=== PATIENT | female | born 1990 | race Caucasian/White ===

== ENCOUNTER 2018-05-20 22:52 | Inpatient (IN) | payer MEDICAID ==
[~2018-05-20] VITALS: Ht 152.4 cm; Wt 63.5 kg
[2018-05-20 23:05] VITALS: Ht 152.4 cm; Wt 63.5 kg
[2018-05-20] MEDS ORDERED: LACTATED RINGER'S 1,000 ML IV PRN (23:06)
--- NOTE | 2018-05-20 23:12 | TRIAGE ---
OB Triage Datetime Report Generated by CPN: 05/20/2018 23:12 Datetime: 05/20/2018 23:10 Time of Arrival: 05/20/2018 22:47 EGA: 39.2 Arrived By: Wheelchair Arrived From: Home Chief Complaint: UC'S Movement: Present Contractions: Regular Time Contractions Began: 05/20/2018 08:00 Contractions: Q4 Rupture of Membranes: Denies Vaginal Bleeding: Small Vaginal Discharge: Denies Recent Sexual Intercouse: Denies Abdominal Trauma: Not Applicable Patient Complaints: Contractions Time Provider Notified: 05/20/2018 23:04 Provider Notified: REICHE Initial Plan: EFM, SVE Datetime: 05/20/2018 22:57 Stage of : OB Triage Assessment Type: Triage Maternal Assessment Level of Consciousness: Fully Conscious Headache: Denies Blurred Vision: No Respiratory Effort: Unlabored; Regular Rhythm; Equal Expansion Nausea/Vomiting: Denies RUQ Epigastric Pain: Denies Facial Edema: None Fall Risk Assessment History of Falling: (0) No Secondary Diagnosis: (0) No Ambulatory Aid: (0) Bedrest/Nurse Assist IV Therapy: (0) No Gait: (0) Normal/Bedrest/Immobile Mental Status: (0) Oriented to Own Ability Fall Score: 0 Fall Risk Score Definition: No Risk: No action required Datetime: 05/20/2018 22:56 Stage of : OB Triage Vaginal Exam Dilatation (cms): 3.0 Effacement (%): 60 Station: -2 Exam By: bart morris
[2018-05-20] MEDS ORDERED: BUTORPHANOL 2 MG INJ IV PRN (23:30)
[2018-05-20] MEDS ORDERED: CARBOPROST 250 MCG INJ IM PRN (23:30)
[2018-05-20] MEDS ORDERED: OXYTOCIN 30 UNITS/LR 500 ML IV SCH ×3 (23:30)
[2018-05-20] MEDS ORDERED: OXYTOCIN 30 UNITS/LR 500 ML IV PRN (23:30)
[2018-05-20] MEDS ORDERED: LIDOCAINE 1% (MPF) 30 ML INJ INJ PRN (23:30)
[2018-05-20] MEDS ORDERED: METHYLERGONOVINE 0.2 MG INJ IM PRN (23:30)
[2018-05-20] MEDS ORDERED: MISOPROSTOL 200 MCG TAB PR PRN (23:30)
[2018-05-21] MEDS ORDERED: FENTAnyl 2MCG/ML-ROPIV 0.2% 100 ML ONE (00:27)
[2018-05-21] MEDS: LACTATED RINGER'S 1,000 ML IV SCH ×3 (00:35→09:14)
--- NOTE | 2018-05-21 00:36 | PREAC ---
Date/Time of Note Date/Time of Note DATE: 05/21/18 TIME: 00:35 Anesthesia Eval and Record Evaluation Time Pre-Procedure Interview DATE: 05/21/18 TIME: 00:35 Age 27 Sex female NPO: 8 hrs Preoperative diagnosis Labor Pain Planned procedure Labor Epidural Past Medical History Past Medical History: Includes Heme: Anemia : : (2), Para: (1), Gestational age: (39) Surgery & Anesthesia Issues No known issue Meds Anticoagulation: No Beta Bang within 24 hr: No Reason Beta Bang not given: Pt. not on B-Bang Current Medications Lactated Ringer's 1,000 ml @ 125 mls/hr Q8H IV ; Start 05/20/18 at 23:06 Butorphanol Tartrate (Stadol) 2 mg Q2H PRN IV .PAIN; Start 05/20/18 at 23:30 Lidocaine (Xylocaine 1% (Mpf)) 30 ml ONCE PRN INJ .EPISIOTOMY; Start 05/20/18 at 23:30 Oxytocin/Lactated Ringer's 500 ml @ 500 mls/hr ONCE POST IV ; Start 05/20/18 at 23:30 Oxytocin/Lactated Ringer's 500 ml @ 125 mls/hr POST IV ; Start 05/20/18 at 23:30 Lactated Ringer's 1,000 ml @ 2,000 mls/hr Q30M PRN IV .ANESTHESIA; Start 05/20/18 at 23:06 Oxytocin/Lactated Ringer's 500 ml @ 0 mls/hr ONCE PRN IV .VAGINAL BLEEDING; Start 05/20/18 at 23:30 Methylergonovine Maleate (Methergine) 0.2 mg ONCE PRN IM .VAGINAL BLEEDING; Start 05/20/18 at 23:30 Carboprost Tromethamine (Hemabate) 250 mcg ONCE PRN IM .VAGINAL BLEEDING; Start 05/20/18 at 23:30 Misoprostol (Cytotec) 1,000 mcg ONCE PRN MS .VAGINAL BLEEDING; Start 05/20/18 at 23:30 Oxytocin/Lactated Ringer's 500 ml @ 0 mls/hr FOR AUGMENTATION IV ; Start 05/20/18 at 23:30 Meds reviewed: Yes Allergies Coded Allergies: No Known Allergy (Unverified , 05/20/18) Allergies Reviewed: Yes Labs/Studies Labs Reviewed: Reviewed by anesthesiologist Result Diagram: 05/20/18 2337 Laboratory Tests 05/20/18 23:37 test: Positive Studies: ECG (n/a), CXR (n/a) Pre-procedure Exam Airway: Adequate mouth opening, Adequate thyromental dist Mallampati: Mallampati II Teeth: Normal Lung: Normal Heart: Normal ASA Physical Status ASA physical status: 2 Emergency: None Planned Anesthetic Neuraxial: Epidural Planned Pain Management Epidural Pre-operative Attestations Prior to commencing anesthesia and surgery, the patient was re-evaluated, there was verification of: *The patient's identity *The results of appropriate recent lab work and preoperative vital signs *The above evaluation not changing prior to induction *Anesthetic plan, risk benefits, alternative and complications discussed with patient/family; questions answered; patient/family understands, accepts and wishes to proceed. TOMASA LAIRD MD May 21, 2018 00:36
--- NOTE | 2018-05-21 00:38 | PAC ---
Date/Time of Note Date/Time of Note DATE: 05/21/18 TIME: 00:37 Post-Anesthesia Notes Post-Anesthesia Note Last documented vital signs T: 98.0 Activity: WNL Respiratory function: WNL Cardiovascular function: WNL Mental status: Baseline Pain reasonably controlled: Yes Hydration appropriate: Yes Nausea/Vomiting absent: Yes TOMASA LAIRD MD May 21, 2018 00:38
[2018-05-21] MEDS ORDERED: NALOXONE (0.4 MG/ML) INJ IV PRN (01:00)
[2018-05-21] MEDS ORDERED: FENTAnyl 2MCG/ML-ROPIV 0.2% 100 ML BAG EPI SCH (01:00)
--- NOTE | 2018-05-21 11:49 | HP ---
Date/Time of Note Date/Time of Note DATE: 05/21/18 TIME: 11:45 OB - History Hx of Present Free Text/Dictation 27 years old 2 para 1001 with single intrauterine at 39 weeks and 2 days complaining of uterine contractions. She states good movement. She denies nausea, vomiting, shortness of breath, chest pain, headache, visual changes, vaginal bleeding or LOF. Chief Complaint: Uterine contractions Estimated Due Date: May 25, 2018 : 2 Para: 1 Spontaneous : 0 Therapeutic : 0 Ultrasounds: Normal mid trimester US Obstetrical Complications: None Medical Complications: None Past Family/Social History * Past Medical, Surgical, Family Histories reviewed which are unremarkable. OB history: with 1 normal vaginal delivery Blood Type: O+ RPR/VDRL: Negative GBS Status: Negative HBsAG: Negative OB Admission Exam Vital Signs Vital Signs Blood pressure 110/67, pulse rate 68/minutes, respiratory rate 16/minutes, temperature 98.1. Physical Exam HEENT: WNL Heart: Rhythm Normal Lungs: Clear Abdomen: WNL Extremities: Normal Cervical Dilatation: 3cm Effacement: 50% Station: -2 Membranes: Intact Heart Rate: 130's Accelerations: Accelerations Present Decelerations: No Decelerations Varibility: Moderate Intensity: Moderate Last 72 hours Lab Results CBC & BMP 05/20/18 23:37 OB Assessment/Plan Other plan: 27 years old 2 para 1001 with single intrauterine at 39 weeks and 2 days in labor - FHR: No sign of metabolic acidosis- Category I - Continuous EFM, toco - CBC, blood type and screen - Analgesia options with R/B/A discussed in detail with patient - Epidural per patient request - Please see the order - Blood type: O+ - GBS: Negative Admission, procedures, expectations, risks and possible complications have been discussed in detail with the patient. Risk of vaginal delivery including but not limited to bleeding, infection, cervical laceration, placental retention, injury to fetus, blood transfusion, blood transfusion related infection, risk of anesthesia, adhesion, cervical laceration, episiotomy/laceration, possible delivery with risk of bleeding, infection, injury to other organs (bowel, bladder, ureter, vessels, nerves), injury to fetus, blood transfusion, blood transfusion related infection, risk of anesthesia, scar and hernia formation, needs for future , removal of uterus or any other indicated surgery discussed with the patient. She expressed understanding and repeats the risks. All of her questions were answered. She signed the informed consent. PHYSICIAN'S VERIFICATION OF INFORMED CONSENT The patient was counseled regarding the procedure, its indications, risks, potential complications and alternatives and any questions were answered. Consent was obtained. PLANNED PROCEDURE/TREATMENT: Vaginal delivery, episiotomy, repair of laceration possible delivery CATRACHO GIRARD May 21, 2018 11:49
--- NOTE | 2018-05-21 11:52 | LDN ---
Date/Time of Note Date/Time of Note DATE: 05/21/18 TIME: 11:49 Delivery Summary 27 years old 2 para 1001 with single intrauterine at 39 weeks and 3 days delivered viable female over first-degree posterior vaginal wall and the right periurethral laceration. Nose and mouth suctioned. Rest of body delivered. Cord clamped and cut. Baby given to the nurse. Placenta delivered spontaneously and and intact with three-vessel cord. Laceration repaired with 3-0 chromic SH needle. Patient tolerated procedure well. Time of delivery 1120 Weight 3220 g - 7 pound 2 ounces Height 18.5 inches 9 7 at 1 minutes and 9 at 5 minutes EBL 200 ml Weeks of Gestation 39 weeks and 3 days Placenta Delivered: Spontaneously Episiotomy: No Estimated blood loss: 200 Sponge & Needle done & correct: Yes All needle counts correct: Yes Any foreign bodies felt in the: No Infant Delivery Information Sex Infant Sex: female Apgars 1 Minute: 7 5 Minute: 9 10 Minute: 10 Suctioning Nose & mouth suctioned at colette: Yes Umbilical Cord Umbilical cord with: 3 Vessels Cord presentations: no nuchal cord Cord Blood was obtained: Yes Mother & Baby Disposition Disposition Mom & Baby to Maternity; Good: Yes CATRACHO GIRARD May 21, 2018 11:52
[2018-05-21 13:15] VITALS: BP 112/77; PULSE 85; RESP 17
[2018-05-21 13:45] VITALS: BP 123/77; PULSE 72; RESP 16
[2018-05-21] MEDS ORDERED: LACTATED RINGER'S 1,000 ML IV* SCH (14:33)
[2018-05-21] MEDS ORDERED: DEXTROSE 5%-LR 1,000 ML IV SCH (14:33)
[2018-05-21] MEDS: OXYCODONE/ASPIRIN (4.88/325) TAB PO PRN (14:50)
[2018-05-21] MEDS: BENZOCAINE 20% 56 ML SPRAY TOP PRN (14:50)
[2018-05-21] MEDS: LANOLIN HPA 1 PKT TOP PRN (14:50)
[2018-05-21] MEDS: WITCH HAZEL/GLYCERIN PAD PR PRN (14:50)
[2018-05-21] MEDS ORDERED: DIBUCAINE 1% 30 GM OINT TOP PRN (15:00)
[2018-05-21] MEDS ORDERED: MISOPROSTOL 200 MCG TAB PR PRN (15:00)
[2018-05-21] MEDS ORDERED: CARBOPROST 250 MCG INJ IM PRN (15:00)
[2018-05-21] MEDS ORDERED: ACETAMINOPHEN 325 MG TAB PO PRN (15:00)
[2018-05-21] MEDS ORDERED: DIPHENHYDRAMINE 50 MG INJ IV PRN (15:00)
[2018-05-21] MEDS ORDERED: ZOLPIDEM 5 MG TAB PO PRN (15:00)
[2018-05-21] MEDS ORDERED: ONDANSETRON 4 MG INJ IV PRN (15:00)
[2018-05-21] MEDS ORDERED: MAGNESIUM HYDROXIDE 30ML CUP PO PRN (15:00)
[2018-05-21] MEDS ORDERED: METHYLERGONOVINE 0.2 MG INJ IM PRN (15:00)
[2018-05-21] MEDS ORDERED: OXYTOCIN 30 UNITS/LR 500 ML IV PRN (15:00)
[2018-05-21 15:54] VITALS: BP 112/70; PULSE 75; RESP 16
[2018-05-21] MEDS: IBUPROFEN 600 MG TAB PO SCH ×2 (17:14→23:39)
[2018-05-21 20:35] VITALS: BP 98/62; PULSE 68; RESP 18
[2018-05-21] MEDS: SENNA/DOCUSATE NA (8.6MG/50MG) TAB PO PRN (20:40)
[2018-05-22 00:15] VITALS: BP 99/66; PULSE 70; RESP 18
[2018-05-22 04:15] VITALS: BP 96/54; PULSE 73; RESP 17
[2018-05-22] MEDS: IBUPROFEN 600 MG TAB PO SCH ×4 (05:40→23:59)
[2018-05-22 08:15] VITALS: BP 94/53; PULSE 65; RESP 14
[2018-05-22] MEDS: OXYCODONE/ASPIRIN (4.88/325) TAB PO PRN ×2 (08:50→22:01)
[2018-05-22 16:00] VITALS: BP 94/50; PULSE 64; RESP 15
[2018-05-22 19:50] VITALS: BP 96/53; PULSE 70; RESP 16
[2018-05-22] MEDS: LANOLIN HPA 1 PKT TOP PRN (20:49)
[2018-05-22] MEDS: SENNA/DOCUSATE NA (8.6MG/50MG) TAB PO PRN (22:01)
[2018-05-23 04:25] VITALS: BP 96/50; RESP 18
[2018-05-23] MEDS: IBUPROFEN 600 MG TAB PO SCH ×3 (06:17→17:21)
[2018-05-23 07:45] VITALS: BP 97/61; PULSE 70; RESP 18
--- NOTE | 2018-05-23 08:49 | PN ---
Date/Time of Note Date/Time of Note DATE: 05/23/18 TIME: 08:47 OB Subjective Subjective Subjective Late Entry Note: Patient seen on 05/22/18 PPD# 1 Patient is doing well. She denies nausea, vomiting, shortness of breath, chest pain, headache. She has been ambulating without difficulty, tolerating regular diet. Pain is well controlled on current medications OB Objective Objective Objective General: AAO X 3, comfortable, NAD, appropriate mood and affect. ABD: +BS. Soft, non-tender. Uterus 2 cm below umbilicus Flank: No CVA tenderness (B/L) LE: Mild edema. No clubbing, cyanosis, thigh or calf tenderness (B/L). Homans 'sign is negative OB Assessment/Plan Other plan: 27 years old 2 para 2-0-0-2 at 39 weeks and 2 days s/p normal vaginal delivery. PPD#1 - AF, VSS - Contraception methods with R/B/A/FR discussed - Continue care CATRACHO GIRARD May 23, 2018 08:49
--- NOTE | 2018-05-23 08:50 | PN ---
Date/Time of Note Date/Time of Note DATE: 05/23/18 TIME: 08:50 OB Subjective Subjective Subjective PPD# 2 Patient is doing well. She denies nausea, vomiting, shortness of breath, chest pain, headache. She has been ambulating without difficulty, tolerating regular diet. Pain is well controlled on current medications OB Objective Objective Objective VS - Last 72 Hours, by Label Date Temp Pulse Resp B/P (MAP) Pulse Ox O2 O2 Flow FiO2 Time Delivery Rate 05/23/18 98.3 18 96/50 (65) Room Air 04:25 05/22/18 98.4 70 16 96/53 (67) Room Air 19:50 05/22/18 98.3 64 15 94/50 (65) Room Air 16:00 05/22/18 97.9 65 14 94/53 (67) Room Air 08:15 05/22/18 98.4 73 17 96/54 (68) Room Air 04:15 05/22/18 97.8 70 18 99/66 (77) Room Air 00:15 05/21/18 98.2 68 18 98/62 (74) Room Air 20:35 05/21/18 99.0 75 16 112/70 Room Air 15:54 (84) 05/21/18 72 16 123/77 Room Air 13:45 (92) 05/21/18 100.3 85 17 112/77 Room Air 13:15 (89) General: AAO X 3, comfortable, NAD, appropriate mood and affect. ABD: +BS. Soft, non-tender. Uterus 2 cm below umbilicus Flank: No CVA tenderness (B/L) LE: Mild edema. No clubbing, cyanosis, thigh or calf tenderness (B/L). Homans 'sign is negative OB Assessment/Plan Other plan: 27 years old 2 para 2-0-0-2 at 39 weeks and 2 days s/p normal vaginal delivery. PPD#2 - AF, VSS - Continue care - Discharge home - Rx and instruction given - Follow up in 2 and 6 weeks at clinic CATRACHO GIRARD May 23, 2018 08:50
[2018-05-23] MEDS ORDERED: MEASLES,MUMPS,RUBELLA VACCINE INJ SC* ONE (09:00)
[2018-05-23] MEDS ORDERED: DIPHTH/TET/ACEL PERTUSS (ADULT) 0.5 ML VIAL IM* ONE (09:00)
--- NOTE | 2018-05-23 10:12 | DS ---
Date/Time of Note Date/Time of Note DATE: 05/23/18 TIME: 10:12 Obstetrical Discharge Record Final Diagnosis Final Diagnosis: Term delivered Other Final Diagnosis 27 years old 2 para 2-0-0-2 at 39 weeks and 2 days s/p normal vaginal delivery. PPD#2 - AF, VSS - Continue care - Discharge home - Rx and instruction given - Follow up in 2 and 6 weeks at clinic Vaginal Delivery Obstetrical Delivery: Spontaneous Condition on Discharge Physical Assessment Last Vitals: Vital Signs Date Temp Pulse Resp B/P (MAP) Pulse Ox O2 O2 Flow FiO2 Time Delivery Rate 05/23/18 98.3 18 96/50 (65) Room Air 04:25 05/22/18 70 19:50 Voiding: Yes Bowel Movement: Yes Breast: Soft, non-tender Fundus: Firm Calf Tenderness: No Patient Condition: Stable CATRACHO GIRARD May 23, 2018 10:12
[2018-05-23] MEDS: BENZOCAINE 20% 56 ML SPRAY TOP PRN (14:59)
[2018-05-23] MEDS: WITCH HAZEL/GLYCERIN PAD PR PRN (14:59)
[2018-05-23 16:01] VITALS: BP 94/55; PULSE 70; RESP 18
--- NOTE | 2018-05-24 18:57 | DELSUM ---
Delivery Summary A-C Datetime Report Generated by CPN: 05/24/2018 18:57 DELIVERY PERSONNEL Client Success Manager: Khemani, Dora MATERNAL INFORMATION Delivery Anesthesia: Epidural Medications in Delivery: LR W/30 UNITS PITOCIN Delivery QBL (ml): 280 Placenta Cultured: No Maternal Complications: None LABOR SUMMARY EDC: 05/25/2018 00:00 No. Babies in Womb: 1 Attempted: No Labor Anesthesia: Epidural LABOR INFORMATION Reason for Induction: Not Applicable Onset of Labor: 05/20/2018 06:00 Complete Dilatation: 05/21/2018 10:44 Oxytocin: Augmentation Group B Beta Strep: Negative Antibiotics # of Doses: 0 Steroids Given: None Reason Steroids Not Administered: Not Applicable MEMBRANES Membranes Rupture Method: Spontaneous Rupture of Membranes: 05/21/2018 06:47 Length of Rupture (hr): 4.55 Amniotic Fluid Color: Bloody Amniotic Fluid Amount: Moderate Amniotic Fluid Odor: Normal STAGES OF LABOR Stage 1 hr: 28 Stage 1 min: 44 Stage 2 hr: 0 Stage 2 min: 36 Stage 3 hr: 0 Stage 3 min: 5 Total Time in Labor hr: 29 Total Time in Labor min: 25 VAGINAL DELIVERY Episiotomy: None Laceration Extension: First Degree Laceration Type: Vaginal; Periurethral Laceration Repair: Yes Initial Vag Sponge Count: 10 Final Vag Sponge Count: 10 Initial Vag Sharps Count: 1 Final Vag Sharps Count: 1+1 Sponge Count Correct: Yes; Vaginal Sweep Performed Sharps Count Correct: Yes BABY A INFORMATION Infant Delivery Date/Time: 05/21/2018 11:20 Method of Delivery: Vaginal Born in Route : No : N/A Forceps: N/A Vacuum Extraction: N/A Shoulder Dystocia : N/A SHOULDER DYSTOCIA BABY A Delivery Date/Time: 05/21/2018 11:20 PRESENTATION/POSITION BABY A Presentation: Cephalic Cephalic Presentation: Vertex Vertex Position: Right Occipital Anterior Breech Presentation: N/A PLACENTA INFORMATION BABY A Placenta Delivery Time : 05/21/2018 11:25 Placenta Method of Delivery: Spontaneous Placenta Status: Delivered SCORES BABY A Heart Rate 1 min: >100 bpm Resp Effort 1 min: Slow, Irregular Reflex Irritability 1 min: Cough/Sneeze/Pulls Away Muscle Tone 1 min: Some Flexion of Extrem Color 1 min: Body [place], Extremit Blue Resuscitation Effort 1 min: Tactile Stimulation SCORE 1 MIN: 7 Heart Rate 5 min: >100 bpm Resp Effort 5 min: Good Cry Reflex Irritability 5 min: Cough/Sneeze/Pulls Away Muscle Tone 5 min: Active Motion Color 5 min: Body [place], Extremit Blue Resuscitation Effort 5 min: Tactile Stimulation SCORE 5 MIN: 9 INFANT INFORMATION BABY A Gestational Age at Delivery: 39.3 Gestational Status: Full Term- 39- 40.6 Weeks Outcome : Liveborn Infant Condition : Stable Infant Sex: Female IDENTIFICATION/MEDS BABY A ID Band Number: [id number] ID Band Location: Right Leg; Left Arm Sensor Applied: Yes Sensor Number: [id number] Sensor Location : Cord Clamp Vitamin K Given : Not Given Erythromycin Given: Not Given WEIGHT/LENGTH BABY A Birthweight (gm): 3220 Weight (lb): 7 Infant Weight (oz): 2 Length (in): 18.50 Length (cm): 46.99 CORD INFORMATION BABY A No. Cord Vessels: 3 Nuchal Cord : N/A Cord Blood Taken: Yes Suction: Mouth; Nose ASSESSMENT BABY A Infant Complications: None Physical Findings at Delivery: Within Normal Limits Infant Respirations: Appears Normal Hospital Television Rental Clerk/ALS Called : Yes Infant Care By: RT/RN Transferred To: Remains with Mother
== END 2018-05-23 18:52 | disposition home or self-care (01) | DRG 807 ==
LOC: OBT 22:52 → L-D 22:52 → OBT 23:04 → L-D 23:04 → PP1 05-21 13:15
PROVIDERS: ADMIT Obstetrics & Gynecology; ATTEND Obstetrics & Gynecology
PROC: 10E0XZZ Delivery of Products of Conception, External Approach (ICD-10-PCS; principal; 2018-05-21)
PROC: 0HQ9XZZ Repair Perineum Skin, External Approach (ICD-10-PCS; 2018-05-21)
PROC: 3E033VJ Introduction of Other Hormone into Peripheral Vein, Percutaneous Approach (ICD-10-PCS; 2018-05-21)
DX: O71.4 Obstetric high vaginal laceration alone (principal); Z37.0 Single live birth; Z3A.39 39 weeks gestation of pregnancy
CPT/HCPCS: 85025; 85610; 85730; 86592; 86762; 86850; 86900; 86901; 87340; G0463; J2210; J2590; J3010; J7120; J7121

== ENCOUNTER 2018-06-03 12:21 | Emergency (ER) | payer MEDICAID ==
[~2018-06-03] VITALS: Ht 152.4 cm; Wt 55.4 kg
[2018-06-03 12:39] VITALS: Ht 152.4 cm; Wt 55.4 kg
[2018-06-03] MEDS ORDERED: KETOROLAC 30 MG INJ IV STA (13:10)
[2018-06-03] MEDS ORDERED: SOD CHLORIDE 0.9% 1,000 ML IV STA (13:10)
[2018-06-03] MEDS ORDERED: ACETAMINOPHEN 500 MG TAB ONE (13:44)
[2018-06-03 14:52] VITALS: BP 98/63; PULSE 97; RESP 18
[2018-06-03] MEDS ORDERED: CEPH-443 PO (15:08)
[2018-06-03] MEDS ORDERED: IBUP800T48 PO (15:08)
--- NOTE | 2018-06-03 15:14 | ERD ---
ER Documentation Chief Complaint Chief Complaint FEVER BODYACHES X 1 DAY. HPI This is a 27-year-old female who presents to the emergency room with a 13-day child. The patient is breast-feeding and notes fever, right breast pain. She also describes suprapubic discomfort with dysuria and urgency. She describes generalized malaise and fever. The pain to the right breast is throbbing, worse with breast-feeding and worse to touch. During the patient's encounter translation services were utilized Language: Telugu Source: In person ROS All systems reviewed and are negative except as per history of present illness. Medications Home Meds Active Scripts Cephalexin* (Keflex*) 500 Mg Capsule, 500 MG PO QID for 7 Days, CAP Prov:CATHERINE OLSEN MD 06/03/18 Ibuprofen* (Motrin*) 800 Mg Tab, 800 MG PO Q6H PRN for PAIN AND OR ELEVATED TEMP, #30 TAB Prov:CATHERINE OLSEN MD 06/03/18 Allergies Allergies: Coded Allergies: No Known Allergy (Unverified , 05/20/18) PMhx/Soc Medical and Surgical Hx: pt denies Medical Hx, pt denies Surgical Hx Hx Alcohol Use: No Hx Substance Use: No Hx Tobacco Use: No Smoking Status: Never smoker FmHx Family History: No diabetes Physical Exam Vitals Vital Signs Date Temp Pulse Resp B/P (MAP) Pulse Ox O2 O2 Flow FiO2 Time Delivery Rate 06/03/18 100.2 97 18 98/63 (75) 97 Room Air 14:52 06/03/18 103.0 13:40 06/03/18 102.0 90 17 110/59 100 12:39 (76) Physical Exam General: Well developed, well nourished, no acute distress Head: Normocephalic, atraumatic. Eyes: Pupils equally reactive, EOM intact ENT: Moist mucous membranes Neck: Supple, no lymphadenopathy Respiratory: Lungs clear bilaterally, no distress Cardiovascular: RRR, no murmurs, rubs, or gallops Abdominal: Soft, very mild suprapubic abdominal tenderness without rebound or guarding, no localization of the right lower quadrant, negative Trevino sign, non-distended, no peritoneal signs : Deferred MSK: No edema, no unilateral swelling, 5/5 strength Neurologic: Alert and oriented, moving all extremities, normal speech, no focal weakness, no cerebellar signs Skin: Geospatial Systems Integrator exam reveals a right lateral aspect breast induration warmth and tenderness. No focal abscess palpated. Milk is expressed. Psych: Normal mood Results 24 hrs Laboratory Tests Test 06/03/18 14:41 Urine Color YELLOW Urine Clarity CLOUDY Urine pH 5.0 Urine Specific [place] 1.021 Urine Ketones NEGATIVE mg/dL Urine Nitrite NEGATIVE mg/dL Urine Bilirubin NEGATIVE mg/dL Urine Urobilinogen NEGATIVE mg/dL Urine Leukocyte Esterase 2+ Zofia/ul Urine Microscopic RBC 22 /HPF Urine Microscopic WBC 70 /HPF Urine Squamous Epithelial Cells FEW /HPF Urine Bacteria FEW /HPF Urine Mucus FEW /HPF Urine Hemoglobin 1+ mg/dL Urine Glucose NEGATIVE mg/dL Urine Total Protein NEGATIVE mg/dl Current Medications Medications Dose Sig/Charity Start Time Status Last (Trade) Ordered Route PRN Stop Time Admin Dose Reason Admin Sodium 1,000 ml @ Q1H STAT 06/03/18 DC 06/03/18 Chloride 1,000 mls/hr IV 13:10 13:14 06/03/18 14:09 Ketorolac 30 mg ONCE STAT 06/03/18 DC 06/03/18 Tromethamine IV 13:10 13:47 (Toradol) 06/03/18 13:12 500 mg STK-MED 06/03/18 DC Acetaminophen ONCE .ROUTE 13:44 (Tylenol 06/03/18 13:45 Tab) Procedures/MDM LAB INTERPRETATION: I reviewed the laboratory testing and it shows possible mild urinary tract infection MEDICAL DECISION MAKING: The patient's presentation is consistent with associated mastitis of the right breast without evidence of abscess. Ultrasound not indicated currently. The patient additionally is describing dysuria and urgency with suprapubic tenderness concerning for acute cystitis. I do not believe this is consistent with endometritis given duration of time since she gave . It was a normal spontaneous vaginal delivery and uncomplicated. Patient has no signs clinically of acute appendicitis. ER COURSE: * Antipyretics and IV fluids provided. * Vital signs and symptoms are much improved. Urinalysis is questionable the patient will be started on Keflex instead of dicloxacillin to cover both acute cystitis and mastitis * Return precautions were discussed and understood. CONSULTATION: None DISPOSITION PLAN: The patient does not have an identifiable emergent medical condition that warrants inpatient hospitalization at this time. The patient is deemed safe for discharge with outpatient follow-up. We discussed follow up with the patient's primary care doctor within 24 to 48 hours as needed. We also discussed return to the emergency room for worsening symptoms or worsening condition. Outpatient referral: None required Discharge Medications: Keflex, Motrin Departure Diagnosis: Primary Impression: Nonpurulent mastitis associated with Additional Impression: UTI (urinary tract infection) Urinary tract infection type: acute cystitis Hematuria presence: without hematuria Qualified Codes: N30.00 - Acute cystitis without hematuria Condition: Stable Patient Instructions: Understanding Urinary Tract Infections (UTIs) [facility] Usted se baxter hecho un examen mdico de control que le indica que no est en precious condicin que requiera tratamiento urgente en el Departamento de Emergencia. Un estudio ms profundo y el tratamiento de eagle condicin pueden esperar sin ningn riesgo hasta que usted sea atendida/o en el consultorio de eagle mdico o precious cl keely. Es responsabilidad suya arreglar precious hira para el seguimiento del josé miguel. MANEJO DE CONDICIONES NO URGENTES EN EL FUTURO 1) Si usted tiene un mdico de atencin primaria: Usted debera llamar a eagle mdico de atencin primaria antes de venir al depar tamento de emergencia. Despus de las horas de consultorio, eagle doctor o eagle asociado/a est disponible por telfono. El mdico o enfermero de vega en el servicio telefnico puede asesorarle por chloe medio para atender el problema, o josé miguel contrario se puede programar precious hira. 2) Si usted no tiene un mdico de atencin primaria: Llame al mdico o clnica de referencia que aparece abajo jorge las horas de consultorio para hacer precious hira para que le vean. CLINICAS: [facility] [phone] [address] [facility] 933 [phone] [address] [facility] 610 [phone] [address] [facility] [phone] [place] [id number] [phone] [facility]. [phone] [address] [facility]. [facility] () Usted se baxter hecho un examen mdico de control que le indica que no est en precious condicin que requiera tratamiento urgente en el Departamento de Emergencia. Un estudio ms profundo y el tratamiento de eagle condicin pueden esperar sin ningn riesgo hasta que usted sea atendida/o en el consultorio de eagle mdico o precious cl keely. Es responsabilidad suya arreglar precious hira para el seguimiento del josé miguel. MANEJO DE CONDICIONES NO URGENTES EN EL FUTURO 1) Si usted tiene un mdico de atencin primaria: Usted debera llamar a eagle mdico de atencin primaria antes de venir al depar tamento de emergencia. Despus de las horas de consultorio, eagle doctor o eagle asociado/a est disponible por telfono. El mdico o enfermero de vega en el servicio telefnico puede asesorarle por chloe medio para atender el problema, o josé miguel contrario se puede programar precious hira. 2) Si usted no tiene un mdico de atencin primaria: Llame al mdico o condado institucions de referencia que aparece abajo jorge las horas de consultorio para hacer preicous hira para que le vean. SI USTED NO PUEDE PAGAR PARA AKIN UN MEDICO puede ir a: [facility] [address] [place] [address] [facility] [address] [place] [address] [facility] [address] [place] [address] [address] [facility] [address] [place] [address] Additional Instructions: Llame al doctor MAANA y valerie precious HIRA PARA DENTRO DE 2-3 HOWARD.Dgale a la secretaria que nosotros le instruimos hacer esta hira.Avise o llame si eagle condicin se empeora antes de la hira. Regresa aqui si peor o no mejor. CATHERINE OLSEN MD Jun 03, 2018 15:14
== END 2018-06-03 15:36 | disposition home or self-care (01) ==
LOC: E/R 12:21
DX: O91.23 Nonpurulent mastitis associated with lactation (principal); O86.20 Urinary tract infection following delivery, unspecified; B96.89 Other specified bacterial agents as the cause of diseases classified elsewhere
CPT/HCPCS: 81001; 96374; J1885; J7030; Z7502; Z7610